=== PATIENT | female | born 1940 | race Caucasian/White ===

== ENCOUNTER 2017-03-29 03:44 | Emergency (ER) | payer MEDICARE ==
--- NOTE | 2017-03-29 03:51 | ER Document Report ---
ED Respiratory Problem - General TRAVEL OUTSIDE OF THE [place] IN LAST 30 DAYS: No <ANGELIQUE PERRY - Last Filed: 03/29/17 05:24> <DAYRON BILLINGS - Last Filed: 03/29/17 05:30> - General Stated Complaint: DIFFICULTY BREATHING Time Seen by Provider: 03/29/17 03:48 Notes: patient is a 76 year old female who presents to the Ed complaining for SOB, was sleeping when she woke up and felt she had a cough and SOB at 2am. Improved after albuterol x2 via EMS, states she feels much better now without SOB. Denies chest pain, fevers, chills, [place], abdominal pain, headhache, admits to nausea. PMH: asthma, CVA 2009, HLD, HTN, DM, dementia (ANGELIQUE PERRY) - Related Data Allergies/Adverse Reactions: Penicillins Allergy (Severe, Verified 08/20/13 13:45) Sulfa (Sulfonamide Antibiotics) Allergy (Severe, Verified 08/20/13 13:45) Past Medical History - Social History Smoking Status: Former Smoker Family History: Reviewed & Not Pertinent - Past Medical History Cardiac Medical History: Reports: Hx Hypercholesterolemia Denies: Hx Heart Attack, Hx Hypertension Pulmonary Medical History: Reports: Hx Asthma - no problems since age [age] Denies: Hx Tuberculosis Neurological Medical History: Reports: Hx Cerebrovascular Accident - 2008, right toes paresthesia. Denies: Hx Seizures Endocrine Medical History: Reports: Hx Diabetes Mellitus Type 2 GI Medical History: Denies: Hx Hepatitis, Hx Hiatal Hernia, Hx Ulcer Infectious Medical History: Denies: Hx Hepatitis Past Surgical History: Reports: Hx Hysterectomy, Hx Orthopedic Surgery - right hip fracture/ pinning. Denies: Hx Mastectomy, Hx Open Heart Surgery, Hx Pacemaker - Immunizations Hx Diphtheria, Pertussis, Tetanus Vaccination: No Hx Pneumococcal Vaccination: 07/27/09 <ANGELIQUE PERRY - Last Filed: 03/29/17 05:24> Review of Systems - Review of Systems Constitutional: No symptoms reported EENT: No symptoms reported Cardiovascular: No symptoms reported Respiratory: See HPI Gastrointestinal: See HPI Genitourinary: No symptoms reported Neurological/Psychological: No symptoms reported -: Yes All other systems reviewed and negative <ANGELIQUE PERRY - Last Filed: 03/29/17 05:24> Physical Exam <ANGELIQUE PERRY - Last Filed: 03/29/17 05:24> <DAYRON BILLINGS - Last Filed: 03/29/17 05:30> - Vital signs Vitals: Resp Pulse Ox 15 97 03/29/17 04:00 03/29/17 04:00 - Notes Notes: PHYSICAL EXAM GENERAL: Alert, interacts well. LUNGS: Diffuse rhonchi to auscultation bilaterally, no wheezes, rales. No respiratory distress. HEART: Regular rate and rhythm. No murmurs, gallops, or rubs. ABDOMEN: Soft, nondistended, nontender. No guarding, rebound, or rigidity.. Bowel sounds present in all 4 quadrants. EXTREMITIES: Moves all 4 extremities spontaneously. No edema, radial and dorsalis pedis pulses 2/4 bilaterally. No cyanosis. NEUROLOGICAL: Alert and oriented x4. Normal speech. PSYCH: Normal affect, normal mood. SKIN: Warm, dry, normal turgor. No rashes or lesions noted. (ANGELIQUE PERRY) Course - Laboratory Result Diagrams: 03/29/17 04:05 03/29/17 04:05 - Diagnostic Test Radiology reviewed: Image reviewed, Reports reviewed - EKG Interpretation by Ok EKG shows normal: Sinus rhythm Rate: Normal Rhythm: NSR When compared to previous EKG there are: No significant change <ANGELIQUE PERRY - Last Filed: 03/29/17 05:24> - Laboratory Result Diagrams: 03/29/17 04:05 03/29/17 04:05 <DAYRON BILLINGS - Last Filed: 03/29/17 05:30> - Re-evaluation Re-evalutation: 03/29/17 04:18 Patient is a 76-year-old female is hemodynamically stable, no acute distress and afebrile. Labs sent and awaiting chest x-ray. 03/29/17 05:00 CBC without any evidence of leukocytosis or anemia. Chemistry panel without any evidence of electrolyte abnormalities, abnormalities in renal function. Urinalysis with mild urinary tract infection. No evidence of pneumonia on chest x-ray. (ANGELIQUE PERRY) - Vital Signs Vital signs: Temp Pulse Resp BP Pulse Ox 24 H 161/53 H 93 03/29/17 05:01 03/29/17 05:01 03/29/17 05:01 - Laboratory Laboratory results interpreted by me: 03/29/17 03/29/17 03/29/17 04:05 04:05 04:05 Plt Count 104 L VBG pH Glucose 268 H Urine Glucose (UA) 50 H Ur Leukocyte Esterase SMALL H 03/29/17 04:05 Plt Count VBG pH 7.44 H Glucose Urine Glucose (UA) Ur Leukocyte Esterase Discharge <ANGELIQUE PERRY - Last Filed: 03/29/17 05:24> <DAYRON BILLINGS - Last Filed: 03/29/17 05:30> - Discharge Clinical Impression: Asthma exacerbation Condition: Good Disposition: HOME, SELF-CARE Instructions: Urinary Tract Infection ([facility]) Additional Instructions: SHORTNESS OF BREATH OR DYSPNEA: You were evaluated for shortness of breath, or dyspnea. Dyspnea has many causes, and some are more serious than others. Sometimes it's impossible to diagnose the cause of dyspnea with the tests that are available on an emergency basis. Based on our evaluation today, you do not need hospitalization now. We found no evidence of pneumonia, collapsed lung, blood clots in the lung, tumors , or heart failure. Causes of non-specific dyspnea can include asthma or bronchospasm, hyperventilation, emotional distress, heart disease, emphysema, fibrosis of the lung, and stiffness of the chest wall. In healthy individuals with a single episode, it's sometimes reasonable to do nothing but wait to see if the problem occurs again. Additional tests used to evaluate dyspnea can include cardiac stress testing, echocardiography, pulmonary function testing, CAT scan of the chest, bronchoscopy or pulmonary biopsy. Return if shortness of breath persists or worsens, or if you develop chest pain, fever, cough, confusion, or fainting. NORMAL EXAM AND WORKUP: At this time, your examination and workup show no significant abnormality. No significant abnormal physical findings were noted. All laboratory, EKG, and imaging (x-ray, CT scans, ultrasound) studies that were ordered show no significant abnormality. Although your examination and all studies that were ordered showed no significant abnormal finding, there are no examinations and no studies that are 100% accurate. There is always the possibility that some abnormality could exist and not be detected with physical examination or within the limits and capabilities of laboratory and other studies. You should return or follow up as you were instructed on your visit today for further evaluation if your symptoms do not resolve. FOLLOW-UP CARE: If you have been referred to a physician for follow-up care, call the physician s office for an appointment as you were instructed or within the next two days. If you experience worsening or a significant change in your symptoms, notify the physician immediately or return to the Emergency Department at any time for re-evaluation. Prescriptions: Albuterol Sulfate [Proair HFA Inhalation Aerosol 8.5 gm MDI] 2 puff IH Q4H PRN # 1 mdi PRN Reason: Nitrofurantoin/Nitrofuran Mac [Macrobid 100 mg Capsule] 1 tab PO BID #10 capsule Prednisone [Deltasone 20 mg Tablet] 3 tab PO DAILY 5 Days tablet Referrals: JIMI CARTER MD [Primary Care Provider] - Follow up in 3-5 days
[2017-03-29] MEDS ORDERED: ALBUTEROL SULFATE 0.083% NEB 2.5 MG/3 ML AMPUL NEB ONE (04:06)
[2017-03-29] MEDS ORDERED: BUDESONIDE NEB 0.5 MG/2 ML AMPUL NEB ONE (04:06)
[2017-03-29 04:30] LABS: ABSOLUTE EOSINOPHILS # (AUTO) 0.1 10^3/uL (0.0-0.6); ABSOLUTE LYMPHOCYTES (AUTO) 3.4 10^3/uL (0.5-4.7); ABSOLUTE MONOCYTES (AUTO) 0.8 10^3/uL (0.1-1.4); ABSOLUTE NEUT (AUTO) 5.3 10^3/uL (1.7-8.2); BASOPHILS % (AUTO) 0.3 % (0-2); EOSINOPHILS % (AUTO) 1.1 % (0-6); HEMATOCRIT 39.4 % (36.0-47.0); HEMOGLOBIN 13.6 g/dL (12.0-15.5); HGB HCT DIFFERENCE 1.4; LYMPHOCYTES % (AUTO) 35.1 % (13-45); MEAN CORPUSCULAR HEMOGLOBIN 31.9 pg (27.0-33.4); MEAN CORPUSCULAR HGB CONC 34.5 g/dL (32.0-36.0); MEAN CORPUSCULAR VOLUME 93 fl (80-97); MONOCYTES % (AUTO) 8.1 % (3-13); RED BLOOD COUNT 4.25 10^6/uL (3.72-5.28); SEGMENTED NEUTROPHILS % (AUTO) 55.4 % (42-78); WHITE BLOOD COUNT 9.7 10^3/uL (4.0-10.5)
--- NOTE | 2017-03-29 04:33 | RADIOLOGY REPORT (SQ) ---
EXAM DESCRIPTION: CHEST SINGLE VIEW COMPLETED DATE/TIME: 03/29/2017 4:23 am REASON FOR STUDY: shortness of breath COMPARISON: Chest x-ray 09/08/2011. EXAM PARAMETERS: NUMBER OF VIEWS: One view. TECHNIQUE: Single frontal radiographic view of the chest acquired. RADIATION DOSE: NA LIMITATIONS: None. FINDINGS: LUNGS AND PLEURA: No consolidation, pneumothorax or pleural effusion. MEDIASTINUM AND HILAR STRUCTURES: No masses. Contour normal. HEART AND VASCULAR STRUCTURES: Heart normal in size. No overt vascular congestion. BONES: No acute findings. HARDWARE: None in the chest. IMPRESSION: No acute radiographic finding in the chest. TECHNICAL DOCUMENTATION: JOB ID: [id number]
[2017-03-29 04:36] LABS: VENOUS BLOOD HCO3 23.7 mmol/L (20-32); VENOUS BLOOD PCO2 35.9 mmHg (35-63); VENOUS BLOOD PH 7.44 (7.30-7.42)
[2017-03-29 04:39] LABS: APPEARANCE,URINE CLEAR; BILIRUBIN,URINE NEGATIVE (NEGATIVE); GLUCOSE, URINE 50 mg/dL (NEGATIVE); KETONES,URINE NEGATIVE (NEGATIVE); LEUKOCYTE ESTERASE,URINE SMALL (NEGATIVE); NITRITE,URINE NEGATIVE (NEGATIVE); PROTEIN,URINE NEGATIVE (NEGATIVE); URINE SPECIFIC GRAVITY 1.003; UROBILINOGEN,URINE NEGATIVE mg/dL (<2.0)
[2017-03-29 04:48] LABS: ANION GAP 14 (5-19); BLOOD UREA NITROGEN 19 mg/dL (7-20); CALCIUM 9.7 mg/dL (8.4-10.2); CARBON DIOXIDE 23 mmol/L (22-30); CHLORIDE 101 mmol/L (98-107); CREATINE KINASE 34 U/L (30-135); CREATININE RESULT 0.68 mg/dL (0.52-1.25); GLUCOSE 268 mg/dL (75-110); POTASSIUM 3.7 mmol/L (3.6-5.0); SODIUM 137.6 mmol/L (137-145)
[2017-03-29] MEDS ORDERED: METHYLPREDNISOLONE INJ 125 MG/2 ML SDV IV ONE (04:48)
[2017-03-29 05:01] LABS: CREATINE KINASE MB 1.03 ng/mL (<4.55); TROPONIN I < 0.012 ng/mL
[2017-03-29 05:40] VITALS: BP 167/58
--- NOTE | 2017-03-29 11:33 | EKG REPORT ---
SEVERITY:- ABNORMAL ECG - SINUS RHYTHM PROBABLE LEFT ATRIAL ABNORMALITY RIGHT BUNDLE BRANCH BLOCK LEFT VENTRICULAR HYPERTROPHY ANTERIOR Q WAVES, POSSIBLY DUE TO LVH : Confirmed by: Pepe Flores 29-Mar-2017 11:32:53
== END 2017-03-29 05:40 | disposition home or self-care (01) ==
LOC: ER 03:44
DX: J45.901 Unspecified asthma with (acute) exacerbation (principal); R06.02 Shortness of breath; R05 Cough; Z79.899 Other long term (current) drug therapy; Z87.891 Personal history of nicotine dependence
CPT/HCPCS: 93005; 94640 ×2; 99285; 96374; 36415; 82553; 82550; 85025; 80048; 81001; 84484; 82803; 71010; 93010; J2930; A9270

== ENCOUNTER 2018-04-04 15:20 | Inpatient (IN) | payer MEDICARE, OTHER ==
--- NOTE | 2018-04-04 16:34 | ER Document Report ---
ED General - General Chief Complaint: S/S of Possible Stroke Stated Complaint: CANT WALK, LETHARGIC Mode of Arrival: Wheelchair Information source: Patient, Relative Notes: This is a 77-year-old female with a history of insulin requiring diabetes, hypertension and stroke in the past (with residual right leg weakness) who presents to the emergency room with 3 days of confusion, slurred speech, not able to bear weight or ambulate. At baseline, she is conversant alert and oriented 3 and ambulates with a walker. Family states that the symptoms began 3 days ago. There is been no fever, chills, nausea, vomiting, complaints of abdominal pain. TRAVEL OUTSIDE OF THE [place] IN LAST 30 DAYS: No - HPI Onset: Last week Onset/Duration: Gradual Quality of pain: No pain Severity: None Pain Level: Denies Associated symptoms: denies: Chest pain, Fever, Shortness of breath Exacerbated by: Denies Relieved by: Denies Similar symptoms previously: Yes Recently seen / treated by doctor: No - Related Data Allergies/Adverse Reactions: Penicillins Allergy (Severe, Verified 08/20/13 13:45) Sulfa (Sulfonamide Antibiotics) Allergy (Severe, Verified 08/20/13 13:45) Past Medical History - General Information source: Patient - Social History Smoking Status: Never Smoker Cigarette use (# per day): No Chew tobacco use (# tins/day): No Frequency of alcohol use: None Drug Abuse: None Lives with: Family Family History: Reviewed & Not Pertinent Patient has suicidal ideation: No Patient has homicidal ideation: No - Past Medical History Cardiac Medical History: Reports: Hx Hypercholesterolemia Denies: Hx Heart Attack, Hx Hypertension Pulmonary Medical History: Reports: Hx Asthma - no problems since age [age] Denies: Hx Tuberculosis Neurological Medical History: Reports: Hx Cerebrovascular Accident - 2009, right toes paresthesia. Denies: Hx Seizures Endocrine Medical History: Reports: Hx Diabetes Mellitus Type 2 GI Medical History: Denies: Hx Hepatitis, Hx Hiatal Hernia, Hx Ulcer Infectious Medical History: Denies: Hx Hepatitis Past Surgical History: Reports: Hx Hysterectomy, Hx Orthopedic Surgery - right hip fracture/ pinning. Denies: Hx Mastectomy, Hx Open Heart Surgery, Hx Pacemaker - Immunizations Hx Diphtheria, Pertussis, Tetanus Vaccination: No Hx Pneumococcal Vaccination: 07/27/09 Review of Systems - Review of Systems Constitutional: denies: Chills, Fever EENT: No symptoms reported Cardiovascular: No symptoms reported Respiratory: No symptoms reported Gastrointestinal: No symptoms reported Genitourinary: No symptoms reported Female Genitourinary: No symptoms reported Musculoskeletal: No symptoms reported Skin: No symptoms reported Hematologic/Lymphatic: No symptoms reported Neurological/Psychological: See HPI Physical Exam - Vital signs Vitals: Temp Pulse Resp BP Pulse Ox 98.8 F 81 18 132/48 H 97 04/04/18 15:45 04/04/18 15:45 04/04/18 15:45 04/04/18 15:45 04/04/18 15:45 Notes: Physical exam: GENERAL: 77-year-old female, alert, she is confused, no acute distress HEAD: Atraumatic, normocephalic. EYES: Pupils equal round and reactive to light, extraocular movements intact, sclera anicteric, conjunctiva are normal. ENT: TMs normal, nares patent, oropharynx clear without exudates. Moist mucous membranes. NECK: Normal range of motion, supple without obvious mass or JVD. LUNGS: Breath sounds clear to auscultation bilaterally and equal. No wheezes rales or rhonchi. HEART: Regular rate and rhythm without murmurs, rubs or gallops. ABDOMEN: Soft, normoactive bowel sounds. No tenderness to palpation. No guarding, no rebound. No masses appreciated. EXTREMITIES: Normal range of motion, no pitting or edema. No clubbing or cyanosis. NEUROLOGICAL: Cranial nerves II through XII grossly intact. Normal speech, she has good hat block bench hand strength bilaterally, she can hold up both arms for 10 seconds without drift, she can hold up the left leg for 5 seconds without drift, she has right lower extremity weakness (which family states is chronic. PSYCH: Normal mood, normal affect. SKIN: Warm, Dry, normal turgor, no rashes or lesions noted. Course - Re-evaluation Re-evalutation: 04/04/18 19:14 Note: This is a 77-year-old woman with diabetes, hypertension and stroke presenting with speech alterations, increased weakness, inability to ambulate concerning for possible new stroke. She is unable to bear weight which is a significant change from her baseline. Plan will be to admit for further evaluation. - Vital Signs Vital signs: Temp Pulse Resp BP Pulse Ox 98.8 F 81 18 132/48 H 97 04/04/18 15:45 04/04/18 15:45 04/04/18 15:45 04/04/18 15:45 04/04/18 15:45 - Laboratory Result Diagrams: 04/04/18 15:46 04/04/18 15:46 Laboratory results interpreted by me: 04/04/18 04/04/18 04/04/18 15:46 15:46 16:53 RBC 3.67 L Hct 35.6 L Plt Count 130 L BUN 22 H Ur Leukocyte Esterase TRACE H - Diagnostic Test Radiology reviewed: Image reviewed, Reports reviewed - CT of the head shows no acute process - EKG Interpretation by Me Rate: Normal Rhythm: NSR - EKG shows normal sinus rhythm with a ventricular rate of 73, intraventricular conduction delay, no acute ST-T wave changes Critical Care Note - Critical Care Note Total time excluding time spent on procedures (mins): 60 Discharge - Discharge Clinical Impression: CVA, Ambulatory dysfunction Condition: Stable Disposition: ADMITTED INPATIENT Admitting Provider: Hospitalist - [facility] Admitted: Telemetry
[2018-04-04 16:54] LABS: ALANINE AMINOTRANSFERASE 30 U/L (9-52); ALBUMIN 4.1 g/dL (3.5-5.0); ALKALINE PHOSPHATASE 74 U/L (38-126); ANION GAP 9 (5-19); ASPARTATE AMINO TRANSFERASE 30 U/L (14-36); BILIRUBIN,DIRECT 0.3 mg/dL (0.0-0.4); BLOOD UREA NITROGEN 22 mg/dL (7-20); CALCIUM 10.1 mg/dL (8.4-10.2); CARBON DIOXIDE 28 mmol/L (22-30); CHLORIDE 103 mmol/L (98-107); GLUCOSE 101 mg/dL (75-110); POTASSIUM 4.7 mmol/L (3.6-5.0); SODIUM 139.7 mmol/L (137-145); TOTAL PROTEIN 7.2 g/dL (6.3-8.2)
[2018-04-04 16:55] LABS: ABSOLUTE EOSINOPHILS # (AUTO) 0.1 10^3/uL (0.0-0.6); ABSOLUTE LYMPHOCYTES (AUTO) 2.4 10^3/uL (0.5-4.7); ABSOLUTE NEUT (AUTO) 6.3 10^3/uL (1.7-8.2); BASOPHILS % (AUTO) 0.3 % (0-2); EOSINOPHILS % (AUTO) 1.3 % (0-6); HEMATOCRIT 35.6 % (36.0-47.0); HEMOGLOBIN 12.1 g/dL (12.0-15.5); LYMPHOCYTES % (AUTO) 24.2 % (13-45); MEAN CORPUSCULAR HEMOGLOBIN 32.9 pg (27.0-33.4); MEAN CORPUSCULAR HGB CONC 33.9 g/dL (32.0-36.0); MEAN CORPUSCULAR VOLUME 97 fl (80-97); MONOCYTES % (AUTO) 10.2 % (3-13); PLATELET COUNT 130 10^3/uL (150-450); RED BLOOD COUNT 3.67 10^6/uL (3.72-5.28); RED CELL DISTRIBUTION WIDTH 13.3 % (11.5-14.0); TOTAL CELLS COUNTED % (AUTO) 100 %; WHITE BLOOD COUNT 9.8 10^3/uL (4.0-10.5)
--- NOTE | 2018-04-04 17:50 | RADIOLOGY REPORT (SQ) ---
EXAM DESCRIPTION: CT HEAD WITHOUT COMPLETED DATE/TIME: 04/04/2018 5:35 pm REASON FOR STUDY: weakness COMPARISON: 08/20/2013. TECHNIQUE: Axial images acquired through the brain without intravenous contrast. Images reviewed wi th bone, brain and subdural windows. Images stored on PACS. All CT scanners at this facility use dose modulation, iterative reconstruction, and/or weight based d osing when appropriate to reduce radiation dose to as low as reasonably achievable (ALARA). [facility]: Dose Right [facility]: CareDose [facility]: Dose Right [facility]: Teradose 4D [facility]: Smart Maker[employer] RADIATION DOSE: CT Rad equipment meets quality standard of care and radiation dose reduction techniq ues were employed. CTDIvol: 53.2 mGy. DLP: 964 mGy-cm. mGy. LIMITATIONS: None. FINDINGS: VENTRICLES: Normal size and contour. CEREBRUM: No masses. No hemorrhage. No midline shift. No evidence for acute infarction. Normal gra y/white matter differentiation. No areas of low density in the white matter. CEREBELLUM: No masses. No hemorrhage. No alteration of density. No evidence for acute infarction. EXTRAAXIAL SPACES: No fluid collections. No masses. ORBITS AND GLOBE: No intra- or extraconal masses. Normal contour of globe without masses. CALVARIUM: No fracture. PARANASAL SINUSES: No fluid or mucosal thickening. SOFT TISSUES: No mass or hematoma. OTHER: No other significant finding. IMPRESSION: NORMAL BRAIN CT WITHOUT CONTRAST. EVIDENCE OF ACUTE STROKE: NO. COMMENT: Quality ID # [id number]: Final reports with documentation of one or more dose reduction techniques (e.g., Automated exposure control, adjustment of the mA and/or kV according to patient size, use of iterative reconstruction technique) TECHNICAL DOCUMENTATION: JOB ID: [id number] [employer]- All Rights Reserved Reading location - IP/workstation name: [email or web address]
--- NOTE | 2018-04-04 18:23 | RADIOLOGY REPORT (SQ) ---
EXAM DESCRIPTION: CHEST SINGLE VIEW COMPLETED DATE/TIME: 04/04/2018 5:39 pm REASON FOR STUDY: cough COMPARISON: 03/29/2017. EXAM PARAMETERS: NUMBER OF VIEWS: One view. TECHNIQUE: Single frontal radiographic view of the chest acquired. RADIATION DOSE: NA LIMITATIONS: None. FINDINGS: LUNGS AND PLEURA: No opacities, masses or pneumothorax. No pleural effusion. MEDIASTINUM AND HILAR STRUCTURES: No masses. Contour normal. HEART AND VASCULAR STRUCTURES: Heart normal in size. Normal vasculature. BONES: No acute findings. HARDWARE: None in the chest. OTHER: No other significant finding. IMPRESSION: NO ACUTE RADIOGRAPHIC FINDING IN THE CHEST. TECHNICAL DOCUMENTATION: JOB ID: [id number] [employer]- All Rights Reserved Reading location - IP/workstation name: [email or web address]
[2018-04-04 18:48] LABS: APPEARANCE,URINE SLIGHTLY-CLOUDY; BILIRUBIN,URINE NEGATIVE (NEGATIVE); COLOR,URINE YELLOW; GLUCOSE, URINE NEGATIVE (NEGATIVE); KETONES,URINE NEGATIVE (NEGATIVE); LEUKOCYTE ESTERASE,URINE TRACE (NEGATIVE); NITRITE,URINE NEGATIVE (NEGATIVE); PROTEIN,URINE NEGATIVE (NEGATIVE); URINE SPECIFIC GRAVITY 1.012; UROBILINOGEN,URINE NEGATIVE mg/dL (<2.0)
[2018-04-04] MEDS ORDERED: PROMETHAZINE HCL 25 MG TABLET PO PRN (21:02)
[2018-04-04] MEDS ORDERED: PROMETHAZINE HCL INJ 25 MG/1 ML VIAL IV PRN (21:02)
[2018-04-04] MEDS ORDERED: ACETAMINOPHEN 325 MG TABLET PO PRN (21:02)
[2018-04-04] MEDS ORDERED: MAG HYDROX/AL HYDROX/SIMETH SUSP 30 ML UDCUP PO PRN (21:02)
--- NOTE | 2018-04-04 22:50 | EKG REPORT ---
SEVERITY:- ABNORMAL ECG - SINUS RHYTHM RBBB AND LAFB PROBABLE LEFT VENTRICULAR HYPERTROPHY : Confirmed by: Musa De Souza MD 04-Apr-2018 22:48:53
[2018-04-04] MEDS ORDERED: DEXTROSE 50%-WATER 25 GM/50 ML DISP.SYRIN IV PRN ×2 (23:12)
[2018-04-04] MEDS ORDERED: DICYCLOMINE HCL 10 MG CAPSULE PO PRN (23:12)
[2018-04-04] MEDS ORDERED: DEXTROSE 40% GEL 15 GM TUBE PO PRN ×2 (23:12)
[2018-04-04] MEDS ORDERED: GLUCAGON,HUMAN RECOMB 1 MG INJ IM PRN (23:12)
--- NOTE | 2018-04-04 23:42 | PDOC H&P ---
History of Present Illness Admission Date/PCP: 04/04/18 18:09 [place] MD Patient complains of: Unable to walk History of Present Illness: MAHI CRUZ is a 77 year old female has been brought by family members as early Thursday morning patient is lead down from a chair, apparently she hit the her bottom and since then has been just laying on the bed, patient has dementia and cannot explain me with clarity what is going on. Most of the day has been a sleeping,talking out of her head, is having hallucinations, has been confused. Has been complaining of headache as per family member but the patient denies. She is known to have dementia. Patient has chronic back pain. Patient has history of a stroke with residual left lower extremity weakness, she woke with a walker but sometimes without it at home. She denies any tingling or numbness on any extremity, apparently she complains of bilateral lower extremity weakness. No facial droop, no inability to swallow or vision problems. ED attending mention a slurred speech but when I talk to family tells me that she did not have her dentures and that the reason she was talking like that. CT of the head negative. Chest x-ray negative. 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 Renal/ Medical History: Reports: Other - Chronic UTI Malignancy Medical History: Reports: Skin Cancer - Left face GI Medical History: Reports: Gastroesophageal Reflux Disease Denies: Hepatitis, Hiatal Hernia Musculoskeltal Medical History: Reports: Other - Chronic back pain Psychiatric Medical History: Reports: Dementia Hematology: Denies: Anemia, Sickle Cell Disease Past Surgical History Past Surgical History: Reports: Hysterectomy, Orthopedic Surgery - right hip fracture/ pinning Denies: Amputation, Mastectomy, Pacemaker Social History Lives with: Family Smoking Status: Never Smoker Hx Recreational Drug Use: No Hx Prescription Drug Abuse: No Past Social History Note: Lives with her son and grandkids who are at the bedside Family History Family History: Reviewed & Not Pertinent Parental Family History Reviewed: No Children Family History Reviewed: NA Sibling(s) Family History Reviewed.: NA Medication/Allergy Home Medications: Amlodipine Besylate 5 mg PO DAILY 04/04/18 Dicyclomine HCl 10 mg PO TID PRN 04/04/18 Donepezil HCl 5 mg PO QHS 04/04/18 Gabapentin 300 mg PO QHS 04/04/18 Losartan Potassium 100 mg PO DAILY 04/04/18 Melatonin 10 mg PO QHS 04/04/18 Pitavastatin Calcium [Livalo] 2 mg PO DAILY 04/04/18 Ranitidine HCl 150 mg PO BID 04/04/18 Allergies/Adverse Reactions: Penicillins Allergy (Severe, Verified 08/20/13 13:45) Sulfa (Sulfonamide Antibiotics) Allergy (Severe, Verified 08/20/13 13:45) Review of Systems Review of Systems: As outlined in the HPI, all others negative Physical Exam Vital Signs: Temp Pulse Resp BP Pulse Ox 98.3 F 86 22 H 133/92 H 96 04/04/18 19:12 04/04/18 19:10 04/04/18 21:01 04/04/18 21:00 04/04/18 20:30 Additional comments: General appearance: Well-developed, well-nourished, elderly, alert and cooperative, and appears to be in no acute distress Head: Normocephalic Eyes: PEERL, EOMI, vision is grossly intact. Ears: External auditory canal and tympanic membranes clear, hearing grossly intact. Nose: No nasal discharge. Throat: Oral cavity and pharynx normal. No inflammation, swelling, exudate or lesions. Dentures in place Neck: Neck supple, nontender without lymphadenopathy, masses or thyromegaly. Tenderness upon movement of the cervical spine Cardiac: Normal S1 and S2. No S3, S4 or murmurs. Rhythm is regular. There is no peripheral edema, cyanosis or pallor. Extremities are warm and well perfused. Capillary refill is less than 2 seconds. No carotid bruits. Lungs: Clear to auscultation and percussion without rales, rhonchi, wheezing or diminished breath sounds. Not using accessory muscles. Abdomen: Positive bowel sounds. Soft. Nondistended, nontender. No guarding or rebound. No masses. No hepatosplenomegaly Extremities: No significant deformity or joint abnormality. No edema. Peripheral pulses intact. No varicosities. Neurological: Cranial nerves II through XII grossly intact. Inability to flex hips similarly or actively and she complains of excruciating back pain. Even when I rolled the patient to the left patient complains of back pains from the cervical spine down to the buttocks area. Do not appreciate focalization. Skin: Skin normal color, texture and turgor with no eruptions, warm and dry. Left facial chronic ulcer. Psychiatric: The mental examination revealed the patient was oriented to person , place, partially in time. The patient was able to demonstrate good judgment, hallucinations during my evaluation or abnormal behaviors. Results Laboratory Results: 04/04/18 04/04/18 04/04/18 15:46 15:46 15:46 WBC 9.8 RBC 3.67 L Hgb 12.1 Hct 35.6 L MCV 97 MCH 32.9 MCHC 33.9 RDW 13.3 Plt Count 130 L Seg Neutrophils % 64.0 Lymphocytes % 24.2 Monocytes % 10.2 Eosinophils % 1.3 Basophils % 0.3 Absolute Neutrophils 6.3 Absolute Lymphocytes 2.4 Absolute Monocytes 1.0 Absolute Eosinophils 0.1 Absolute Basophils 0.0 Sodium 139.7 Potassium 4.7 Chloride 103 Carbon Dioxide 28 Anion Gap 9 BUN 22 H Creatinine 0.84 Est GFR ( Amer) > 60 Est GFR (Non-Af Amer) > 60 Glucose 101 POC Glucose Calcium 10.1 Total Bilirubin 1.0 Direct Bilirubin 0.3 AST 30 ALT 30 Alkaline Phosphatase 74 Creatine Kinase 67 Total Protein 7.2 Albumin 4.1 Urine Color Urine Appearance Urine pH Ur Specific Clute Urine Protein Urine Glucose (UA) Urine Ketones Urine Blood Urine Nitrite Urine Bilirubin Urine Urobilinogen Ur Leukocyte Esterase Urine WBC (Auto) Urine RBC (Auto) Squamous Epi Cells Auto Urine Mucus (Auto) Urine Ascorbic Acid Stool Occult Blood 04/04/18 04/04/18 04/04/18 16:26 16:53 22:25 WBC RBC Hgb Hct MCV MCH MCHC RDW Plt Count Seg Neutrophils % Lymphocytes % Monocytes % Eosinophils % Basophils % Absolute Neutrophils Absolute Lymphocytes Absolute Monocytes Absolute Eosinophils Absolute Basophils Sodium Potassium Chloride Carbon Dioxide Anion Gap BUN Creatinine Est GFR ( Amer) Est GFR (Non-Af Amer) Glucose POC Glucose 180 H Calcium Total Bilirubin Direct Bilirubin AST ALT Alkaline Phosphatase Creatine Kinase Total Protein Albumin Urine Color YELLOW Urine Appearance SLIGHTLY-CLOUDY Urine pH 5.0 Ur Specific Clute 1.012 Urine Protein NEGATIVE Urine Glucose (UA) NEGATIVE Urine Ketones NEGATIVE Urine Blood NEGATIVE Urine Nitrite NEGATIVE Urine Bilirubin NEGATIVE Urine Urobilinogen NEGATIVE Ur Leukocyte Esterase TRACE H Urine WBC (Auto) 6 Urine RBC (Auto) 0 Squamous Epi Cells Auto <1 Urine Mucus (Auto) RARE Urine Ascorbic Acid NEGATIVE Stool Occult Blood NEGATIVE Impressions: Chest X-Ray 04/04/18 16:26 IMPRESSION: NO ACUTE RADIOGRAPHIC FINDING IN THE CHEST. Head CT 04/04/18 16:27 IMPRESSION: NORMAL BRAIN CT WITHOUT CONTRAST. EVIDENCE OF ACUTE STROKE: NO. Assessment & Plan - Diagnosis (1) Inability to walk Is this a current diagnosis for this admission?: Yes Plan: Patient is light from a chair last Thursday, was unwitnessed, apparently she hated her lower back and fell on her buttocks. She has no focalizing and during my physical exam was she is complaining if of severe pain when I move passively her lower extremities, right more than left. He can move better the left lower extremity actively. I feel that her symptoms has to do more with her chronic back pain rather than acutely stroke, however I will place an order for an MRI of the brain. She is known to have chronic left lower extremity weakness and she walks with a walker. Physical therapy evaluation. Patient might need a CT of the spine if symptoms is not improved. I am going to avoid to give her any opioids. Continues telemetry monitoring. (2) Diabetes mellitus type 2 in obese Is this a current diagnosis for this admission?: Yes Plan: accuckecks qachs, insulin lispro sliding scale and hypoglycemia protocol. Do not see she is on any diabetic medication at home. (3) Hypertension Is this a current diagnosis for this admission?: Yes Plan: Continue amlodipine and losartan (4) Peripheral neuropathy Is this a current diagnosis for this admission?: Yes Plan: Continue gabapentin (5) Chronic back pain Is this a current diagnosis for this admission?: Yes Plan: Continue gabapentin, Tylenol, place order for lidocaine patch. (6) Dementia Is this a current diagnosis for this admission?: Yes Plan: Probably progressing, can explain her confusion and altered mental status at home including hallucinations, she will probably follow with neurology as an outpatient. Continue donepezil. During my examination seems to be at her baseline. - Time Time Spent: 30 to 50 Minutes
[2018-04-04] MEDS: NORMAL SALINE 1000 ML 1,000 ML IV PRN (23:48)
[2018-04-04] MEDS: INSULIN LISPRO 100 UNIT/ML 3 ML VIAL SUBCUT PRN (23:48)
[2018-04-05] MEDS ORDERED: LIDOCAINE 4% TRANSPARENT DRESSING 5 GM KIT TP ONE
[2018-04-05] MEDS ORDERED: LIDOCAINE 4% TRANSPARENT DRESSING 5 GM KIT ONE (01:44)
[2018-04-05 07:20] LABS: ANION GAP 10 (5-19); BLOOD UREA NITROGEN 20 mg/dL (7-20); CALCIUM 9.4 mg/dL (8.4-10.2); CARBON DIOXIDE 25 mmol/L (22-30); CHLORIDE 104 mmol/L (98-107); GLUCOSE 134 mg/dL (75-110); POTASSIUM 4.1 mmol/L (3.6-5.0); SODIUM 139.1 mmol/L (137-145)
[2018-04-05] MEDS ORDERED: PROMETHAZINE HCL INJ 25 MG/1 ML VIAL IV PRN (08:00)
[2018-04-05] MEDS ORDERED: ENOXAPARIN SODIUM INJ 40 MG/0.4 ML DISP.SYRIN SUBCUT SCH (10:00)
[2018-04-05] MEDS ORDERED: RANITIDINE HCL SYRUP 150 MG/10 ML UDCUP PO SCH (10:00)
[2018-04-05] MEDS: LOSARTAN POTASSIUM 50 MG TABLET PO SCH (10:24)
[2018-04-05] MEDS: FAMOTIDINE 20 MG TABLET PO SCH ×2 (10:25→17:29)
[2018-04-05] MEDS: AMLODIPINE BESYLATE 5 MG TABLET PO SCH (10:25)
--- NOTE | 2018-04-05 13:18 | RADIOLOGY REPORT (SQ) ---
EXAM DESCRIPTION: MRI HEAD WITHOUT COMPLETED DATE/TIME: 04/05/2018 12:44 pm REASON FOR STUDY: CVA COMPARISON: MRI brain 06/08/2009 CT brain 04/04/2018 TECHNIQUE: Multiplanar imaging includes non-contrasted T1, T2, FLAIR, and diffusion with ADC map seq uences. Images stored on PACS. LIMITATIONS: Motion artifact throughout the study FINDINGS: Study degraded by patient motion artifact. Diffusion-weighted images are positive for multiple punctate acute infarcts in the bifrontal and bipa rietal layne-white junction, left external capsule/lateral basal ganglia, bilateral occipital layne-whi te junction, and bilateral cerebellar hemispheres. Findings are worrisome for acute nonhemorrhagic e mbolic infarcts. No gross acute intracranial hemorrhage or mass effect/midline shift. Globes post cataract surgery IMPRESSION: Multiple punctate acute foci of ischemia scattered throughout the bilateral cerebral and cerebellar hemispheres worrisome for embolic stroke. These are acute, nonhemorrhagic. EVIDENCE OF ACUTE STROKE: Yes COMMENT: Pertinent findings on the imaging study reported as a CRITICAL RESULT to SONI harrison t13:11 on 04/05/2018. Category of Critical Result: ACUTE NONHEMORRHAGIC EMBOLIC INFARCTS TECHNICAL DOCUMENTATION: JOB ID: [id number] [employer]- All Rights Reserved Reading location - IP/workstation name: [email or web address]
[2018-04-05] MEDS: NORMAL SALINE 1000 ML 1,000 ML IV PRN (14:41)
[2018-04-05] MEDS: INSULIN LISPRO 100 UNIT/ML 3 ML VIAL SUBCUT PRN ×3 (14:42→23:11)
[2018-04-05] MEDS ORDERED: HEPARIN SOD (PORCINE) 1,000 UNIT/ML 10 ML VIAL IV ONE (15:00)
[2018-04-05 15:18] LABS: APPEARANCE,URINE CLEAR; BILIRUBIN,URINE NEGATIVE (NEGATIVE); COLOR,URINE STRAW; GLUCOSE, URINE 50 mg/dL (NEGATIVE); KETONES,URINE NEGATIVE (NEGATIVE); LEUKOCYTE ESTERASE,URINE TRACE (NEGATIVE); NITRITE,URINE NEGATIVE (NEGATIVE); PROTEIN,URINE NEGATIVE (NEGATIVE); URINE SPECIFIC GRAVITY 1.008; UROBILINOGEN,URINE NEGATIVE mg/dL (<2.0)
[2018-04-05 15:26] LABS: INTERNATIONAL RATION (INR) 1.02; PARTIAL THROMBOPLASTIN TIME 36.2 SEC (23.5-35.8); PROTHROMBIN TIME 13.9 SEC (11.4-15.4)
[2018-04-05] MEDS: HEPARIN SODIUM,PORCINE/D5W 25,000 UNIT/250 ML RTUINJ IV PRN (16:22)
--- NOTE | 2018-04-05 21:19 | PDOC PROGRESS REPORT ---
<SONI JUNIOR Willy - Last Filed: 04/05/18 20:50> Subjective Progress Note for:: 04/05/18 Subjective:: 77 y.o. F admitted to [facility] for bilateral lower extremity weakness starting three days ago. PMH includes HLD, HTN, CVA, asthma, diabetes, chronic UTI, and dementia. The patient was seen this afternoon on rounds following her MRI. Upon assessment the patient is resting comfortably in bed on room air. She is A&Ox3 but confused at times. She has trouble recalling the events leading up to her hospitalization. PERRLA. Equal strength in all extremities. No motor or sensory deficits noted. Mild difficulty with hand/eye coordination. LCTA. S1S2. Trace peripheral edema. Per PT/OT evaluation, they state the patient requires 2 person assist to get OOB. Radiologist reported MRI showed multiple areas of acute ischemia scattered throughout the cerebral and cerebral hemispheres - concerning for embolic stroke. Patient was started on Heparin gtt. [facility] was contacted regarding the need for a KATHE. Dr. Harper (assessment clinician) agreed to evaluate the patient tomorrow at 0900 and, if needed, move forward with the procedure at 1000. Nursing staff aware. Reason For Visit: GENERALIZED WEAKNESS Physical Exam Vital Signs: Temp Pulse Resp BP Pulse Ox 98.8 F 94 16 134/52 H 97 04/05/18 11:16 04/05/18 11:16 04/05/18 11:16 04/05/18 11:16 04/05/18 11:16 Intake & Output 04/04/18 04/05/18 04/06/18 06:59 06:59 06:59 Intake Total 222 Output Total 600 Balance -378 Weight 80.6 kg General appearance: PRESENT: morbidly obese Head exam: PRESENT: atraumatic Eye exam: PRESENT: conjunctiva pink, PERRLA. ABSENT: nystagmus Mouth exam: PRESENT: moist, tongue midline Teeth exam: PRESENT: poor dentation Neck exam: PRESENT: full ROM Respiratory exam: PRESENT: clear to auscultation vannessa, symmetrical, unlabored Cardiovascular exam: PRESENT: +S1, +S2 Pulses: PRESENT: normal radial pulses, normal dorsalis pedis pul GI/Abdominal exam: PRESENT: normal bowel sounds, soft. ABSENT: distended, tenderness Rectal exam: PRESENT: deferred Extremities exam: PRESENT: full ROM, +1 edema Musculoskeletal exam: PRESENT: full ROM. ABSENT: ambulatory - with 2 person assist Neurological exam: PRESENT: alert, awake, oriented to person, oriented to place , oriented to time, oriented to situation Psychiatric exam: PRESENT: appropriate affect Skin exam: PRESENT: dry, intact, normal color, warm Results Laboratory Results: 04/05/18 05:13 04/05/18 04/05/18 05:13 05:13 Sodium 139.1 Potassium 4.1 Chloride 104 Carbon Dioxide 25 Anion Gap 10 BUN 20 Creatinine 0.85 Est GFR ( Amer) > 60 Est GFR (Non-Af Amer) > 60 Glucose 134 H Calcium 9.4 Magnesium 1.7 Impressions: Chest X-Ray 04/04/18 16:26 IMPRESSION: NO ACUTE RADIOGRAPHIC FINDING IN THE CHEST. Head CT 04/04/18 16:27 IMPRESSION: NORMAL BRAIN CT WITHOUT CONTRAST. EVIDENCE OF ACUTE STROKE: NO. Head MRI 04/05/18 00:00 IMPRESSION: Multiple punctate acute foci of ischemia scattered throughout the bilateral cerebral and cerebellar hemispheres worrisome for embolic stroke. These are acute, nonhemorrhagic. EVIDENCE OF ACUTE STROKE: Yes Assessment & Plan - Diagnosis (1) Acute CVA (cerebrovascular accident) Is this a current diagnosis for this admission?: Yes Plan: As evidence by multiple acute foci infarct on MRI in cerebellar and cerebral hemispheres Admit to IM MENDS q4hr Initiate heparin GTT Patient will require KATHE, arrangements made with [facility] to have procedure done tomorrow Aspirin and statin therapy PT/OT (2) Dementia Is this a current diagnosis for this admission?: Yes Plan: Family endorses history of dementia Patient is able to answer orientation questions but clearly has some confusion/ dementia upon further evaluation Continue home dose Aricept Encourage family visitation Day/night cues Room close to nursing station for safety (3) Diabetes mellitus type 2 in obese Is this a current diagnosis for this admission?: Yes Plan: History of diabetes ACHS accucheks Humalog sliding scale coverage (4) Hypertension Is this a current diagnosis for this admission?: Yes Plan: History of HTN Continue home dose losartaan and amlodipine - Time Time Spent with patient: 15-24 minutes Medications reviewed and adjusted accordingly: Yes Anticipated discharge: Acute Rehab - Inpatient Certification Based on my medical assessment, after consideration of the patient's comorbidities, presenting symptoms, or acuity I expect that the services needed warrant INPATIENT care.: Yes I certify that my determination is in accordance with my understanding of Medicare's requirements for reasonable and necessary INPATIENT services [42 CFR 412.3e].: Yes Medical Necessity: Risk of Complication if Not Cared For in Hospital - Plan Summary Plan Summary: HEPARIN GTT. KATHE AT [facility] TOMORROW. BLOOD PRESSURE MONITORING. PT/OT. LIKELY D/C TO ACUTE REHAB. <SWAYZE,ALICIA M - Last Filed: 04/20/18 17:20> Subjective Reason For Visit: CVA Physical Exam Vital Signs: Temp Pulse Resp BP Pulse Ox 98.1 F 102 H 16 110/45 L 98 04/06/18 23:19 04/06/18 23:19 04/06/18 23:19 04/06/18 23:19 04/06/18 23:19 Results Laboratory Results: 04/06/18 05:06 04/06/18 05:06 Impressions: Chest X-Ray 04/04/18 16:26 IMPRESSION: NO ACUTE RADIOGRAPHIC FINDING IN THE CHEST. Head CT 04/04/18 16:27 IMPRESSION: NORMAL BRAIN CT WITHOUT CONTRAST. EVIDENCE OF ACUTE STROKE: NO. Head MRI 04/05/18 00:00 IMPRESSION: Multiple punctate acute foci of ischemia scattered throughout the bilateral cerebral and cerebellar hemispheres worrisome for embolic stroke. These are acute, nonhemorrhagic. EVIDENCE OF ACUTE STROKE: Yes Provider Note Provider Note: I have discussed the patient in detail with ERIN Junior. I am in agreement with her evaluation and plan.
[2018-04-05] MEDS: ATORVASTATIN CALCIUM 10 MG TABLET PO SCH (23:12)
[2018-04-05] MEDS: GABAPENTIN 300 MG CAPSULE PO SCH (23:12)
[2018-04-05] MEDS: DONEPEZIL HCL 5 MG TABLET PO SCH (23:13)
[2018-04-06] MEDS: MELATONIN 5 MG TABLET PO SCH ×2 (04:51→23:02)
[2018-04-06] MEDS: NORMAL SALINE 1000 ML 1,000 ML IV PRN (06:08)
[2018-04-06 06:15] LABS: HEMATOCRIT 32.1 % (36.0-47.0); HEMOGLOBIN 11.1 g/dL (12.0-15.5); MEAN CORPUSCULAR HEMOGLOBIN 33.3 pg (27.0-33.4); MEAN CORPUSCULAR HGB CONC 34.7 g/dL (32.0-36.0); MEAN CORPUSCULAR VOLUME 96 fl (80-97); PLATELET COUNT 114 10^3/uL (150-450); RED BLOOD COUNT 3.34 10^6/uL (3.72-5.28); RED CELL DISTRIBUTION WIDTH 13.1 % (11.5-14.0); WHITE BLOOD COUNT 9.7 10^3/uL (4.0-10.5)
[2018-04-06 06:39] LABS: ANION GAP 8 (5-19); BLOOD UREA NITROGEN 14 mg/dL (7-20); CARBON DIOXIDE 23 mmol/L (22-30); CHLORIDE 108 mmol/L (98-107); CHOLESTEROL 134.27 mg/dL (0-200); GLUCOSE 134 mg/dL (75-110); PHOSPHORUS 3.4 mg/dL (2.5-4.5); POTASSIUM 4.1 mmol/L (3.6-5.0); SODIUM 138.7 mmol/L (137-145); TRIGLYCERIDES 97 mg/dL (<150)
[2018-04-06 06:50] LABS: DIRECT LDL 65 mg/dL (<100)
[2018-04-06] MEDS: LOSARTAN POTASSIUM 50 MG TABLET PO SCH (09:40)
[2018-04-06] MEDS: AMLODIPINE BESYLATE 5 MG TABLET PO SCH (09:40)
[2018-04-06] MEDS: FAMOTIDINE 20 MG TABLET PO SCH ×2 (09:40→17:21)
[2018-04-06] MEDS ORDERED: ASPIRIN 81 MG TABLET, CHEWABLE PO SCH (10:00)
[2018-04-06] MEDS: INSULIN LISPRO 100 UNIT/ML 3 ML VIAL SUBCUT PRN ×2 (13:06→21:34)
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
[2018-04-06] MEDS: HEPARIN SODIUM,PORCINE/D5W 25,000 UNIT/250 ML RTUINJ IV PRN (15:30)
[2018-04-06] MEDS: GABAPENTIN 300 MG CAPSULE PO SCH (21:29)
[2018-04-06] MEDS: ATORVASTATIN CALCIUM 10 MG TABLET PO SCH (21:29)
[2018-04-06] MEDS: DONEPEZIL HCL 5 MG TABLET PO SCH (21:29)
[2018-04-06 23:35] VITALS: BP 110/45
[2018-04-07] MEDS: NORMAL SALINE 1000 ML 1,000 ML IV PRN (00:13)
== END 2018-04-07 02:48 | disposition short-term general hospital (02) | DRG 66 ==
LOC: ER 15:20 → EH 18:09 → INTOOBSV 18:09 → 3W 23:20 → OBSVTOIN 04-05 16:37
PROVIDERS: ADMIT Internal Medicine; ATTEND Internal Medicine
DX: I63.9 Cerebral infarction, unspecified (principal); E78.5 Hyperlipidemia, unspecified; I69.341 Monoplegia of lower limb following cerebral infarction affecting right dominant side; I10 Essential (primary) hypertension; E11.42 Type 2 diabetes mellitus with diabetic polyneuropathy; K21.9 Gastro-esophageal reflux disease without esophagitis; G89.29 Other chronic pain; M54.9 Dorsalgia, unspecified; E66.01 Morbid (severe) obesity due to excess calories; F03.90 Unspecified dementia, unspecified severity, without behavioral disturbance, psychotic disturbance, mood disturbance, and anxiety; J45.909 Unspecified asthma, uncomplicated; Z87.440 Personal history of urinary (tract) infections; Z88.2 Allergy status to sulfonamides; Z79.4 Long term (current) use of insulin; Z90.710 Acquired absence of both cervix and uterus; Z85.828 Personal history of other malignant neoplasm of skin; Z75.1 Person awaiting admission to adequate facility elsewhere
CPT/HCPCS: 36415; 51702; 70450; 70551; 71045; 80048; 80053; 80061; 81001; 82272; 82550; 82962; 83735; 84100; 85025; 85027; 85610; 85730; 87086; 93005; 93010; 99291; G0378; G8978-GP; G8979-GP; G8987-GO; G8988-GO; G8989-GO; J1644; J1650; J1815; J3490; J7030

== ENCOUNTER → 2018-06-04 | Outpatient (CLI) | payer MEDICARE, OTHER | LOC: OD 09:33 | PROVIDERS: ATTEND Family Medicine Geriatric Medicine | DX: E11.9 Type 2 diabetes mellitus without complications (principal); Z53.8 Procedure and treatment not carried out for other reasons; I10 Essential (primary) hypertension; E78.5 Hyperlipidemia, unspecified; Z79.899 Other long term (current) drug therapy; E53.8 Deficiency of other specified B group vitamins ==

== ENCOUNTER → 2018-06-29 | Outpatient (CLI) | payer MEDICARE ==
[2018-06-29 12:03] LABS: ABSOLUTE EOSINOPHILS # (AUTO) 0.2 10^3/uL (0.0-0.6); ABSOLUTE LYMPHOCYTES (AUTO) 2.8 10^3/uL (0.5-4.7); ABSOLUTE MONOCYTES (AUTO) 0.7 10^3/uL (0.1-1.4); ABSOLUTE NEUT (AUTO) 5.9 10^3/uL (1.7-8.2); BASOPHILS % (AUTO) 0.4 % (0-2); EOSINOPHILS % (AUTO) 1.8 % (0-6); HEMATOCRIT 35.3 % (36.0-47.0); HEMOGLOBIN 12.4 g/dL (12.0-15.5); LYMPHOCYTES % (AUTO) 29.3 % (13-45); MEAN CORPUSCULAR HEMOGLOBIN 33.3 pg (27.0-33.4); MEAN CORPUSCULAR HGB CONC 35.1 g/dL (32.0-36.0); MEAN CORPUSCULAR VOLUME 95 fl (80-97); MONOCYTES % (AUTO) 7.6 % (3-13); PLATELET COUNT 148 10^3/uL (150-450); RED BLOOD COUNT 3.72 10^6/uL (3.72-5.28); RED CELL DISTRIBUTION WIDTH 14.1 % (11.5-14.0); SEGMENTED NEUTROPHILS % (AUTO) 60.9 % (42-78); TOTAL CELLS COUNTED % (AUTO) 100 %; WHITE BLOOD COUNT 9.7 10^3/uL (4.0-10.5)
[2018-06-29 12:20] LABS: ALANINE AMINOTRANSFERASE 35 U/L (9-52); ALBUMIN 4.1 g/dL (3.5-5.0); ALKALINE PHOSPHATASE 94 U/L (38-126); ANION GAP 11 (5-19); ASPARTATE AMINO TRANSFERASE 25 U/L (14-36); BILIRUBIN,DIRECT 0.1 mg/dL (0.0-0.4); BILIRUBIN,TOTAL 0.6 mg/dL (0.2-1.3); BLOOD UREA NITROGEN 19 mg/dL (7-20); CALCIUM 9.7 mg/dL (8.4-10.2); CARBON DIOXIDE 27 mmol/L (22-30); CHLORIDE 103 mmol/L (98-107); CHOLESTEROL 118.69 mg/dL (0-200); GLUCOSE 94 mg/dL (75-110); POTASSIUM 4.5 mmol/L (3.6-5.0); SODIUM 140.7 mmol/L (137-145); TOTAL PROTEIN 7.1 g/dL (6.3-8.2); TRIGLYCERIDES 134 mg/dL (<150)
[2018-06-29 12:31] LABS: DIRECT LDL 64 mg/dL (<100)
[2018-06-30 12:38] LABS: CREATININE URINE 101.1 mg/dL (Not Estab.); MICROALBUMIN URINE 18.8 ug/mL (Not Estab.)
== END ==
LOC: LAB 11:20
PROVIDERS: ATTEND Family Medicine Geriatric Medicine
DX: E11.9 Type 2 diabetes mellitus without complications (principal); I10 Essential (primary) hypertension; E66.9 Obesity, unspecified; E55.9 Vitamin D deficiency, unspecified; E78.5 Hyperlipidemia, unspecified; Z79.899 Other long term (current) drug therapy
CPT/HCPCS: 36415; 80053; 80061; 82043; 82570; 82607; 83036; 84443; 85025

== ENCOUNTER → 2018-09-06 | Outpatient (CLI) | payer MEDICARE ==
[2018-09-06 13:18] LABS: ABSOLUTE EOSINOPHILS # (AUTO) 0.2 10^3/uL (0.0-0.6); ABSOLUTE LYMPHOCYTES (AUTO) 2.5 10^3/uL (0.5-4.7); ABSOLUTE MONOCYTES (AUTO) 0.7 10^3/uL (0.1-1.4); ABSOLUTE NEUT (AUTO) 5.4 10^3/uL (1.7-8.2); BASOPHILS % (AUTO) 0.4 % (0-2); EOSINOPHILS % (AUTO) 2.7 % (0-6); HEMATOCRIT 35.1 % (36.0-47.0); HEMOGLOBIN 12.2 g/dL (12.0-15.5); LYMPHOCYTES % (AUTO) 28.1 % (13-45); MEAN CORPUSCULAR HEMOGLOBIN 33.3 pg (27.0-33.4); MEAN CORPUSCULAR HGB CONC 34.7 g/dL (32.0-36.0); MEAN CORPUSCULAR VOLUME 96 fl (80-97); MONOCYTES % (AUTO) 7.5 % (3-13); PLATELET COUNT 156 10^3/uL (150-450); RED BLOOD COUNT 3.65 10^6/uL (3.72-5.28); RED CELL DISTRIBUTION WIDTH 14.1 % (11.5-14.0); SEGMENTED NEUTROPHILS % (AUTO) 61.3 % (42-78); TOTAL CELLS COUNTED % (AUTO) 100 %; WHITE BLOOD COUNT 8.7 10^3/uL (4.0-10.5)
[2018-09-06 13:36] LABS: ALANINE AMINOTRANSFERASE 36 U/L (9-52); ALBUMIN 4.4 g/dL (3.5-5.0); ALKALINE PHOSPHATASE 106 U/L (38-126); ANION GAP 11 (5-19); ASPARTATE AMINO TRANSFERASE 23 U/L (14-36); BILIRUBIN,DIRECT 0.1 mg/dL (0.0-0.4); BILIRUBIN,TOTAL 0.8 mg/dL (0.2-1.3); BLOOD UREA NITROGEN 17 mg/dL (7-20); CALCIUM 9.7 mg/dL (8.4-10.2); CARBON DIOXIDE 29 mmol/L (22-30); CHLORIDE 101 mmol/L (98-107); GLUCOSE 145 mg/dL (75-110); POTASSIUM 4.4 mmol/L (3.6-5.0); SODIUM 140.6 mmol/L (137-145); TOTAL PROTEIN 7.1 g/dL (6.3-8.2); TRIGLYCERIDES 152 mg/dL (<150)
[2018-09-06 13:48] LABS: DIRECT LDL 69 mg/dL (<100)
[2018-09-06 14:26] LABS: VLDL CHOLESTEROL 30.4 mg/dL (10-31)
[2018-09-07 12:38] LABS: CREATININE URINE 31.6 mg/dL (Not Estab.)
== END ==
LOC: LAB 12:40
PROVIDERS: ATTEND Family Medicine Geriatric Medicine
DX: E11.42 Type 2 diabetes mellitus with diabetic polyneuropathy (principal); E78.5 Hyperlipidemia, unspecified; I10 Essential (primary) hypertension; E53.8 Deficiency of other specified B group vitamins; K21.9 Gastro-esophageal reflux disease without esophagitis; Z79.899 Other long term (current) drug therapy
CPT/HCPCS: 36415; 80053; 80061; 82043; 82570; 82607; 83036; 84443; 85025

== ENCOUNTER 2019-04-11 12:54 | Emergency (ER) | payer MEDICARE, OTHER ==
--- NOTE | 2019-04-11 13:32 | ER Document Report ---
ED Medical Screen (RME) - General Chief Complaint: Urinary Problem Stated Complaint: URINARY ISSUES Time Seen by Provider: 04/11/19 13:24 Primary Care Provider: GOOD RICHMOND MD [Primary Care Provider] - Follow up as needed Mode of Arrival: Wheelchair Information source: Relative Notes: Patient is a 78-year-old female presented to the emergency department chief co mplaint of possible rash to her groin area as well as pain to that area and fever earlier today. Son reports the patient has severe dementia. He states that his told him she has a rash to her groin and that she has been having obvious pain. She was recently treated for urinary tract infection. Exam: Patient sitting up in wheelchair, not answering any questions, apparently this is her baseline. She does not appear to be toxic, her vital signs were within normal limits. Vaginal exam deferred until patient is in her room. I have greeted and performed a rapid initial assessment of this patient. A comprehensive ED assessment and evaluation of the patient, analysis of test results and completion of the medical decision making process will be conducted by additional ED providers. I have specifically instructed the patient or family members with the patient to immediately return to any nursing staff should anything change in the patient's condition or with their chief complaint. This medical record was dictated with voice recognizing software. There may be grammatical, syntax errors that are unintended. TRAVEL OUTSIDE OF THE [place] IN LAST 30 DAYS: No - Related Data Allergies/Adverse Reactions: Penicillins Allergy (Severe, Verified 08/20/13 13:45) Sulfa (Sulfonamide Antibiotics) Allergy (Severe, Verified 08/20/13 13:45) Past Medical History - Social History Chew tobacco use (# tins/day): No Frequency of alcohol use: None Drug Abuse: None - Past Medical History Cardiac Medical History: Reports: Hx Hypercholesterolemia, Hx Hypertension Denies: Hx Heart Attack Pulmonary Medical History: Reports: Hx Asthma - no problems since age [age] Denies: Hx Tuberculosis Neurological Medical History: Reports: Hx Cerebrovascular Accident - 2009, right toes paresthesia. Denies: Hx Seizures Endocrine Medical History: Reports: Hx Diabetes Mellitus Type 2 - With peripheral neuropathy Renal/ Medical History: Denies: Hx Peritoneal Dialysis Malignancy Medical History: Reports: Hx Skin Cancer - Left face GI Medical History: Reports: Hx Gastroesophageal Reflux Disease. Denies: Hx Hepatitis, Hx Hiatal Hernia, Hx Ulcer Psychiatric Medical History: Reports: Hx Dementia Infectious Medical History: Denies: Hx Hepatitis Past Surgical History: Reports: Hx Hysterectomy, Hx Orthopedic Surgery - right hip fracture/ pinning. Denies: Hx Mastectomy, Hx Open Heart Surgery, Hx Pacemaker - Immunizations Hx Diphtheria, Pertussis, Tetanus Vaccination: No Physical Exam - Vital signs Vitals: Temp Pulse Resp BP 99.5 F 87 18 136/59 H 04/11/19 13:01 04/11/19 13:01 04/11/19 13:01 04/11/19 13:01 Course - Vital Signs Vital signs: Temp Pulse Resp BP Pulse Ox 99.5 F 87 18 136/59 H 04/11/19 13:01 04/11/19 13:01 04/11/19 13:01 04/11/19 13:01 Doctor's Discharge - Discharge Referrals: GOOD RICHMOND MD [Primary Care Provider] - Follow up as needed
[2019-04-11 14:15] LABS: ABSOLUTE BASOPHILS # (AUTO) 0.1 10^3/uL (0.0-0.2); ABSOLUTE EOSINOPHILS # (AUTO) 0.3 10^3/uL (0.0-0.6); ABSOLUTE LYMPHOCYTES (AUTO) 2.7 10^3/uL (0.5-4.7); ABSOLUTE MONOCYTES (AUTO) 0.7 10^3/uL (0.1-1.4); ABSOLUTE NEUT (AUTO) 4.6 10^3/uL (1.7-8.2); BASOPHILS % (AUTO) 0.7 % (0-2); EOSINOPHILS % (AUTO) 3.9 % (0-6); HEMATOCRIT 35.2 % (36.0-47.0); LYMPHOCYTES % (AUTO) 32.5 % (13-45); MEAN CORPUSCULAR HEMOGLOBIN 32.6 pg (27.0-33.4); MEAN CORPUSCULAR HGB CONC 34.1 g/dL (32.0-36.0); MEAN CORPUSCULAR VOLUME 96 fl (80-97); MONOCYTES % (AUTO) 8.6 % (3-13); PLATELET COUNT 154 10^3/uL (150-450); RED BLOOD COUNT 3.68 10^6/uL (3.72-5.28); RED CELL DISTRIBUTION WIDTH 13.6 % (11.5-14.0); SEGMENTED NEUTROPHILS % (AUTO) 54.3 % (42-78); TOTAL CELLS COUNTED % (AUTO) 100 %; WHITE BLOOD COUNT 8.4 10^3/uL (4.0-10.5)
[2019-04-11 14:41] LABS: ALBUMIN 4.1 g/dL (3.5-5.0); ALKALINE PHOSPHATASE 82 U/L (38-126); ANION GAP 11 (5-19); ASPARTATE AMINO TRANSFERASE 21 U/L (14-36); BILIRUBIN,DIRECT 0.1 mg/dL (0.0-0.4); BILIRUBIN,TOTAL 0.5 mg/dL (0.2-1.3); BLOOD UREA NITROGEN 17 mg/dL (7-20); CALCIUM 9.4 mg/dL (8.4-10.2); CARBON DIOXIDE 25 mmol/L (22-30); CHLORIDE 101 mmol/L (98-107); GLUCOSE 158 mg/dL (75-110); POTASSIUM 4.4 mmol/L (3.6-5.0); TOTAL PROTEIN 6.8 g/dL (6.3-8.2)
[2019-04-11 15:19] LABS: APPEARANCE,URINE CLOUDY; BILIRUBIN,URINE NEGATIVE (NEGATIVE); COLOR,URINE YELLOW; GLUCOSE, URINE NEGATIVE (NEGATIVE); KETONES,URINE NEGATIVE (NEGATIVE); LEUKOCYTE ESTERASE,URINE LARGE (NEGATIVE); NITRITE,URINE POSITIVE (NEGATIVE); PROTEIN,URINE 30 mg/dL (NEGATIVE); URINE SPECIFIC GRAVITY 1.017; UROBILINOGEN,URINE NEGATIVE mg/dL (<2.0)
[2019-04-11] MEDS ORDERED: CEPHALEXIN 500 MG CAPSULE PO ONE (16:27)
--- NOTE | 2019-04-11 16:27 | ER Document Report ---
ED General - General Chief Complaint: Urinary Problem Stated Complaint: URINARY ISSUES Time Seen by Provider: 04/11/19 13:24 Primary Care Provider: GOOD RICHMOND MD [Primary Care Provider] - Follow up in 3-5 days Mode of Arrival: Wheelchair Notes: Patient is a 78-year-old female who presents the emergency department with a chief complaint of dysuria and a fever. Her son is at bedside to provide additional history. Her son states that the patient had a urinary tract infection back in January, but states that he does not think that the infection completely cleared. Patient also states that she has a rash to her perineum. They are using ointment at home, but cannot recall what kind of ointment. Patient has a past medical history of depression, hypertension, hyperlipidemia, GERD, and urinary tract infections. TRAVEL OUTSIDE OF THE [place] IN LAST 30 DAYS: No - Related Data Allergies/Adverse Reactions: Penicillins Allergy (Severe, Verified 08/20/13 13:45) Sulfa (Sulfonamide Antibiotics) Allergy (Severe, Verified 08/20/13 13:45) Past Medical History - General Information source: Relative - Social History Smoking Status: Never Smoker Chew tobacco use (# tins/day): No Frequency of alcohol use: None Drug Abuse: None Family History: Reviewed & Not Pertinent Patient has suicidal ideation: No Patient has homicidal ideation: No - Past Medical History Cardiac Medical History: Reports: Hx Hypercholesterolemia, Hx Hypertension Denies: Hx Heart Attack Pulmonary Medical History: Reports: Hx Asthma - no problems since age [age] Denies: Hx Tuberculosis Neurological Medical History: Reports: Hx Cerebrovascular Accident - 2008, right toes paresthesia. Denies: Hx Seizures Endocrine Medical History: Reports: Hx Diabetes Mellitus Type 2 - With peripheral neuropathy Renal/ Medical History: Denies: Hx Peritoneal Dialysis Malignancy Medical History: Reports: Hx Skin Cancer - Left face GI Medical History: Reports: Hx Gastroesophageal Reflux Disease. Denies: Hx H epatitis, Hx Hiatal Hernia, Hx Ulcer Psychiatric Medical History: Reports: Hx Dementia Infectious Medical History: Denies: Hx Hepatitis Past Surgical History: Reports: Hx Hysterectomy, Hx Orthopedic Surgery - right hip fracture/ pinning. Denies: Hx Mastectomy, Hx Open Heart Surgery, Hx Pacemaker - Immunizations Hx Diphtheria, Pertussis, Tetanus Vaccination: No Hx Pneumococcal Vaccination: 07/27/09 Review of Systems - Review of Systems Notes: REVIEW OF SYSTEMS: CONSTITUTIONAL : See HPI. EENT: Denies eye, ear, throat, or mouth pain, discharge, or symptoms. Denies nasal or sinus congestion. CARDIOVASCULAR: Denies chest pain. RESPIRATORY: Denies shortness of breath, cough, congestion, difficulty breathing, or wheezing. GASTROINTESTINAL: Denies nausea, vomiting, and diarrhea. Denies abdominal pain. Denies constipation. GENITOURINARY: See HPI. MUSCULOSKELETAL: Denies neck and back pain. Denies joint pain or swelling. SKIN: See HPI. HEMATOLOGIC : Denies easy bruising or bleeding. LYMPHATIC: Denies swollen, painful, enlarged glands. NEUROLOGICAL: Denies no numbness or tingling denies new weakness. Denies headache. Denies altered mental status. Denies alteration in speech. PSYCHIATRIC: Denies stress, anxiety, alteration in sleep patterns, or depression. All other systems reviewed and negative. Physical Exam - Vital signs Vitals: Temp Pulse Resp BP 99.5 F 87 18 136/59 H 04/11/19 13:01 04/11/19 13:01 04/11/19 13:04/11/19 13:01 - Notes Notes: PHYSICAL EXAMINATION: GENERAL: Obese, appears stated age, no acute distress. HEAD: Normocephalic, atraumatic. EYES: PERRL, conjunctiva normal, all extraocular movements intact, sclera nonicteric ENT: Dry mucous membranes. NECK: Supple, no noticeable swelling, redness, rash. Normal range of motion. LUNGS: Equal breath sounds bilaterally and clear to auscultation. No wheezes rales or rhonchi. CARDIOVASCULAR: S1-S2, regular rate, regular rhythm. Radial pulses 2+, normal. ABDOMEN: Normoactive bowel sounds. Soft, nontender, no guarding, no rebound tenderness, and no masses palpated. EXTREMITIES: Normal strength and range of motion, no pitting or edema. No cya nosis. NEUROLOGICAL: Moves all extremities upon command. Strength 4/5 in all extremities, which is her normal. PSYCH: Normal mood, normal affect. SKIN: Warm, dry. Very small erythema noted to bilateral groin. Normal skin turgor. Course - Re-evaluation Re-evalutation: Patient's hematology is unremarkable. Hemoglobin hematocrit are stable. No leukocytosis noted. Vital signs are stable. Her chemistries are unremarkable. Urine shows a large amount of leukocytes and greater than 182 white blood cells and her urine. She also has 3+ bacteria with WBC clumps. Her urine will be sent for culture. She will be started on Keflex. I will also start her on nystatin powder for rash to her groin. She will also follow-up with her primary care provider. Family is at bedside and agrees with this plan. Follow-up precautions were given. Verbal discharge instructions were given to the patient. They verbalized understanding. They are stable for discharge. - Vital Signs Vital signs: Temp Pulse Resp BP Pulse Ox 98.3 F 90 18 152/45 H 97 04/11/19 16:51 04/11/19 16:51 04/11/19 13:01 04/11/19 16:51 04/11/19 16:51 - Laboratory Result Diagrams: 04/11/19 13:57 04/11/19 13:57 Laboratory results interpreted by me: 04/11/19 04/11/19 04/11/19 13:57 13:57 14:45 RBC 3.68 L Hct 35.2 L Sodium 136.9 L Glucose 158 H Urine Protein 30 H Urine Blood SMALL H Urine Nitrite POSITIVE H Ur Leukocyte Esterase LARGE H Discharge - Discharge Clinical Impression: Rash of groin Urinary tract infection Qualifiers: Urinary tract infection type: acute cystitis Hematuria presence: with hematuria Qualified Code(s): N30.01 - Acute cystitis with hematuria Condition: Stable Disposition: HOME, SELF-CARE Instructions: Cephalexin ([facility]), Urinary Tract Infection ([facility]) Additional Instructions: Your urine shows findings consistent with a urinary tract infection. Please take all the antibiotics as directed even if your symptoms have improved. Please follow-up with your primary care physician as needed. Return to emergency room if you develop fever >101F, persistent vomiting, become lethargic, have severe pain in your sides, or any other symptoms that are concerning to you. Prescriptions: Cephalexin [Keflex] 500 mg PO BID #14 capsule Nystatin 1 each MC ASDIR PRN #7 powder.ea. PRN Reason: Referrals: GOOD RICHMOND MD [Primary Care Provider] - Follow up in 3-5 days
[2019-04-11 16:53] VITALS: BP 152/45
== END 2019-04-11 16:54 | disposition home or self-care (01) ==
LOC: ER 12:54
DX: N30.01 Acute cystitis with hematuria (principal); R21 Rash and other nonspecific skin eruption; R30.0 Dysuria; R50.9 Fever, unspecified; E78.00 Pure hypercholesterolemia, unspecified; I10 Essential (primary) hypertension; E11.9 Type 2 diabetes mellitus without complications; Z88.0 Allergy status to penicillin; Z88.2 Allergy status to sulfonamides; Z90.710 Acquired absence of both cervix and uterus
CPT/HCPCS: 36415; 87086; 85025; 87088; 80053; 81001; A9270; 51701; 87186; 99283

== ENCOUNTER 2020-01-15 09:33 | Emergency (ER) | payer MEDICARE, OTHER ==
[2020-01-15 09:59] LABS: INTERNATIONAL RATION (INR) 1.05; PROTHROMBIN TIME 13.7 SEC (11.4-15.4)
[2020-01-15 10:00] LABS: ABSOLUTE EOSINOPHILS # (AUTO) 0.2 10^3/uL (0.0-0.6); ABSOLUTE LYMPHOCYTES (AUTO) 2.7 10^3/uL (0.5-4.7); ABSOLUTE MONOCYTES (AUTO) 0.9 10^3/uL (0.1-1.4); ABSOLUTE NEUT (AUTO) 5.3 10^3/uL (1.7-8.2); BASOPHILS % (AUTO) 0.4 % (0-2); EOSINOPHILS % (AUTO) 2.1 % (0-6); HEMATOCRIT 38.4 % (36.0-47.0); HEMOGLOBIN 12.9 g/dL (12.0-15.5); LYMPHOCYTES % (AUTO) 29.7 % (13-45); MEAN CORPUSCULAR HEMOGLOBIN 33.6 pg (27.0-33.4); MEAN CORPUSCULAR HGB CONC 33.5 g/dL (32.0-36.0); MEAN CORPUSCULAR VOLUME 100 fl (80-97); MONOCYTES % (AUTO) 9.9 % (3-13); PARTIAL THROMBOPLASTIN TIME 31.7 SEC (23.5-35.8); PLATELET COUNT 137 10^3/uL (150-450); RED BLOOD COUNT 3.83 10^6/uL (3.72-5.28); RED CELL DISTRIBUTION WIDTH 14.1 % (11.5-14.0); SEGMENTED NEUTROPHILS % (AUTO) 57.9 % (42-78); TOTAL CELLS COUNTED % (AUTO) 100 %; WHITE BLOOD COUNT 9.1 10^3/uL (4.0-10.5)
[2020-01-15] MEDS ORDERED: NORMAL SALINE 1000 ML 1,000 ML IV ONE (10:00)
--- NOTE | 2020-01-15 10:01 | EKG REPORT ---
SEVERITY:- ABNORMAL ECG - SINUS RHYTHM RBBB AND LAFB PROBABLE LEFT VENTRICULAR HYPERTROPHY : Confirmed by: Musa De Souza MD 15-Jan-2020 10:00:32
[2020-01-15 10:13] LABS: ALBUMIN 3.9 g/dL (3.5-5.0); ALKALINE PHOSPHATASE 101 U/L (38-126); ANION GAP 9 (5-19); ASPARTATE AMINO TRANSFERASE 25 U/L (14-36); BILIRUBIN,TOTAL 0.6 mg/dL (0.2-1.3); BLOOD UREA NITROGEN 13 mg/dL (7-20); CALCIUM 9.3 mg/dL (8.4-10.2); CARBON DIOXIDE 24 mmol/L (22-30); CHLORIDE 107 mmol/L (98-107); CREATINE KINASE 23 U/L (30-135); GLUCOSE 151 mg/dL (75-110); POTASSIUM 4.4 mmol/L (3.6-5.0)
[2020-01-15 10:24] LABS: CREATINE KINASE MB 0.35 ng/mL (<4.55)
[2020-01-15 10:25] LABS: TROPONIN I < 0.012 ng/mL
--- NOTE | 2020-01-15 10:32 | RADIOLOGY REPORT (SQ) ---
EXAM DESCRIPTION: CHEST SINGLE VIEW IMAGES COMPLETED DATE/TIME: 01/15/2020 10:16 am REASON FOR STUDY: stroke-like symptoms COMPARISON: 2010 EXAM PARAMETERS: NUMBER OF VIEWS: One view. TECHNIQUE: Single frontal radiographic view of the chest acquired. RADIATION DOSE: NA LIMITATIONS: None. FINDINGS: LUNGS AND PLEURA: No opacities, masses or pneumothorax. No pleural effusion. MEDIASTINUM AND HILAR STRUCTURES: No masses. Contour normal. HEART AND VASCULAR STRUCTURES: Heart normal in size. Normal vasculature. BONES: No acute findings. HARDWARE: None in the chest. OTHER: No other significant finding. IMPRESSION: NO ACUTE RADIOGRAPHIC FINDING IN THE CHEST. TECHNICAL DOCUMENTATION: JOB ID: [id number] 2010 [employer]- All Rights Reserved Reading location - IP/workstation name: [email or web address]
--- NOTE | 2020-01-15 10:35 | RADIOLOGY REPORT (SQ) ---
EXAM DESCRIPTION: CT HEAD WITHOUT IMAGES COMPLETED DATE/TIME: 01/15/2020 10:15 am REASON FOR STUDY: stroke-like symptoms COMPARISON: None. TECHNIQUE: Axial images acquired through the brain without intravenous contrast. Images reviewed wi th bone, brain and subdural windows. Additional sagittal and coronal reconstructions were generated. Images stored on PACS. All CT scanners at this facility use dose modulation, iterative reconstruction, and/or weight based d osing when appropriate to reduce radiation dose to as low as reasonably achievable (ALARA). [facility]: Dose Right [facility]: CareDose [facility]: Dose Right [facility]: Teradose 4D [facility]: Smart SocialDefender RADIATION DOSE: CT Rad equipment meets quality standard of care and radiation dose reduction techniq ues were employed. CTDIvol: 53.2 mGy. DLP: 937 mGy-cm. mGy. LIMITATIONS: None. FINDINGS: VENTRICLES: Normal size and contour. CEREBRUM: No masses. No hemorrhage. No midline shift. No evidence for acute infarction. Normal gra y/white matter differentiation. No areas of low density in the white matter. CEREBELLUM: No masses. No hemorrhage. No alteration of density. No evidence for acute infarction. EXTRAAXIAL SPACES: No fluid collections. No masses. ORBITS AND GLOBE: No intra- or extraconal masses. Normal contour of globe without masses. CALVARIUM: No fracture. PARANASAL SINUSES: No fluid or mucosal thickening. SOFT TISSUES: No mass or hematoma. OTHER: No other significant finding. IMPRESSION: NORMAL BRAIN CT WITHOUT CONTRAST. EVIDENCE OF ACUTE STROKE: NO. COMMENT: Quality ID # [id number]: Final reports with documentation of one or more dose reduction techniques (e.g., Automated exposure control, adjustment of the mA and/or kV according to patient size, use of iterative reconstruction technique) TECHNICAL DOCUMENTATION: JOB ID: [id number] 2010 [employer]- All Rights Reserved Reading location - IP/workstation name: [email or web address]
[2020-01-15 10:42] LABS: APPEARANCE,URINE CLOUDY; BILIRUBIN,URINE SMALL (NEGATIVE); COLOR,URINE YELLOW; GLUCOSE, URINE NEGATIVE (NEGATIVE); KETONES,URINE NEGATIVE (NEGATIVE); LEUKOCYTE ESTERASE,URINE LARGE (NEGATIVE); NITRITE,URINE POSITIVE (NEGATIVE); PROTEIN,URINE NEGATIVE (NEGATIVE); URINE SPECIFIC GRAVITY 1.015; UROBILINOGEN,URINE NEGATIVE mg/dL (<2.0)
[2020-01-15 10:54] LABS: URINE AMPHETAMINES SCREEN NEGATIVE; URINE BARBITURATES SCREEN NEGATIVE; URINE BENZODIAZEPINES SCREEN NEGATIVE; URINE COCAINE SCREEN NEGATIVE; URINE MARIJUANA (THC) SCREEN NEGATIVE; URINE METHADONE SCREEN NEGATIVE; URINE PHENCYCLIDINE SCREEN NEGATIVE
[2020-01-15] MEDS ORDERED: CIPROFLOXACIN 400 MG/D5W RTU 400 MG/200 ML RTUPB IV ONE (11:08)
--- NOTE | 2020-01-15 12:45 | ER Document Report ---
Entered by SOFIA EDMONDSON SCRIBE 01/15/20 1025 Acting as scribe for:ADRIENNE SANTACRUZ MD ED General - General Chief Complaint: Weakness Stated Complaint: GAIT ISSUE/WEAKNESS Time Seen by Provider: 01/15/20 09:53 Primary Care Provider: LULÚ MUNOZ PA-C [Primary Care Provider] - Follow up as needed Mode of Arrival: Ambulatory Information source: Patient Notes: This 79 year old female that presents to the emergency department today with co mplaints of "acting delirious" for the last few days per son at bedside. Son states that the patient is just getting over a UTI, stating she finished up her antibiotics a few days ago. Son states the urine still has an odor to it. Son states the patient has been generally weak for the last few days as well. TRAVEL OUTSIDE OF THE [place] IN LAST 30 DAYS: No - Related Data Allergies/Adverse Reactions: Penicillins Allergy (Severe, Verified 01/15/20 10:30) Sulfa (Sulfonamide Antibiotics) Allergy (Severe, Verified 01/15/20 10:30) Past Medical History - General Information source: Patient - Social History Smoking Status: Never Smoker Cigarette use (# per day): No Frequency of alcohol use: None Drug Abuse: None Lives with: Family Family History: Reviewed & Not Pertinent Patient has homicidal ideation: No - Past Medical History Cardiac Medical History: Reports: Hx Hypercholesterolemia, Hx Hypertension Pulmonary Medical History: Reports: Hx Asthma - no problems since age [age] Neurological Medical History: Reports: Hx Cerebrovascular Accident - 2008, right toes paresthesia Endocrine Medical History: Reports: 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 Malignancy Medical History: Reports: Hx Skin Cancer - Left face GI Medical History: Reports: Hx Gastroesophageal Reflux Disease Psychiatric Medical History: Reports: Hx Dementia Past Surgical History: Reports: Hx Hysterectomy, Hx Orthopedic Surgery - right hip fracture/ pinning - Immunizations Hx Diphtheria, Pertussis, Tetanus Vaccination: No Hx Pneumococcal Vaccination: 07/27/09 Review of Systems - Review of Systems -: Yes ROS unobtainable due to patient's medical condition - demented Physical Exam - Vital signs Vitals: Temp 99.5 F 01/15/20 09:34 - Notes Notes: Physical Exam: General: Alert, moderate distress. HEENT: Normocephalic. Atraumatic. PERRL. Extraocular movements intact. Oropharynx clear. Neck: Supple. Respiratory: No respiratory distress. Clear and equal breath sounds bilaterally. Cardiovascular: Regular rate and rhythm. Abdominal: Normal Inspection. Non-tender. No distension. Normal Bowel Sounds. Back: No gross abnormalities. Extremities: Moves all four extremities. Upper extremities: Normal inspection. Normal ROM. Lower extremities: Non pitting lower extremity edema. Normal ROM. Neurological: Confused at baseline. No extremity weakness. Unable to follow most commands. Psychological: Agitated Skin: Warm. Dry. Normal color. Course - Re-evaluation Re-evalutation: 01/15/20 12:38 Patient resting in bed comfortably not showing signs of distress. - Vital Signs Vital signs: Temp Pulse Resp BP Pulse Ox 99.5 F 98 22 H 143/69 H 98 01/15/20 09:37 01/15/20 10:00 01/15/20 10:00 01/15/20 10:00 01/15/20 10:00 01/15/20 12:38 Vital signs stable - Laboratory Result Diagrams: 01/15/20 09:44 01/15/20 09:44 Laboratory results interpreted by me: 01/15/20 01/15/20 01/15/20 09:44 09:44 09:44 MCV 100 H MCH 33.6 H RDW 14.1 H Plt Count 137 L Glucose 151 H POC Glucose 138 H Creatine Kinase 23 L Urine Blood Urine Nitrite Urine Bilirubin Ur Leukocyte Esterase 01/15/20 09:55 MCV MCH RDW Plt Count Glucose POC Glucose Creatine Kinase Urine Blood SMALL H Urine Nitrite POSITIVE H Urine Bilirubin SMALL H Ur Leukocyte Esterase LARGE H - Diagnostic Test Radiology reviewed: Image reviewed, Reports reviewed Radiology results interpreted by me: 01/15/20 12:39 CT scan of head shows no acute process no stroke. Chest x-ray shows no infiltrate no acute process. - EKG Interpretation by Me Additional EKG results interpreted by me: 01/15/20 12:39 Twelve-lead EKG shows sinus normal sinus rhythm right bundle branch block and left anterior fascicular block and left ventricular hypertrophy. Discharge - Discharge Clinical Impression: Altered mental status, Urinary tract infection Condition: Stable Disposition: HOME, SELF-CARE Instructions: Urinary Tract Infection ([facility]) Additional Instructions: Urinary Tract Infection Your evaluation indicates that you have a urinary tract infection. This is due to germs growing in the bladder. This is a common problem. This infection usually responds quickly to antibiotics. Your antibiotic should be taken exactly as prescribed. Drink plenty of fluids -- three to four quarts a day. Occasionally, a bladder anesthetic will be prescribed to help stop the feeling of urgency until the antibiotic has a chance to clear the infection. This may cause your urine to be dark orange. Certain urine infections require a culture. If the doctor obtained a culture, the results will be back in two days. You should call to see if a change in treatment is needed. A repeat urinalysis after you finish treatment is often recommended. The physician will let you know if further testing is required. Call the doctor if you develop fever, chills, flank pain, inability to urinate, or blood in the urine. Prescriptions: Ciprofloxacin HCl [Cipro] 500 mg PO BID 10 Days #20 tablet Referrals: LULÚ MUNOZ PA-C [Primary Care Provider] - Follow up as needed I personally performed the services described in the documentation, reviewed and edited the documentation which was dictated to the scribe in my presence, and it accurately records my words and actions.
[2020-01-15 13:25] VITALS: BP 125/81
== END 2020-01-15 13:25 | disposition home or self-care (01) ==
LOC: ER 09:33
DX: N39.0 Urinary tract infection, site not specified (principal); R41.82 Altered mental status, unspecified; R53.1 Weakness; Z88.0 Allergy status to penicillin; Z88.2 Allergy status to sulfonamides; E11.42 Type 2 diabetes mellitus with diabetic polyneuropathy; I10 Essential (primary) hypertension; J45.909 Unspecified asthma, uncomplicated
CPT/HCPCS: 93005; 99285; 96361; 96365; 36415; 87040; 87086; 82553; 82962; 82550; 83605; 85025; 85610; 85730; 87088; 80053; 81001; 84484; 80307; 87150 ×26; 71045; 70450; 93010; J7030; J0744; 87077; 87186

== ENCOUNTER → 2020-08-24 | Outpatient (CLI) | payer MEDICARE ==
[2020-08-24 16:26] LABS: ALBUMIN 3.9 g/dL (3.5-5.0); ALKALINE PHOSPHATASE 101 U/L (38-126); ANION GAP 11 (5-19); ASPARTATE AMINO TRANSFERASE 34 U/L (14-36); BILIRUBIN,DIRECT 0.3 mg/dL (0.0-0.4); BILIRUBIN,TOTAL 0.7 mg/dL (0.2-1.3); BLOOD UREA NITROGEN 24 mg/dL (7-20); CALCIUM 9.3 mg/dL (8.4-10.2); CARBON DIOXIDE 22 mmol/L (22-30); CHLORIDE 110 mmol/L (98-107); GLUCOSE 122 mg/dL (75-110); POTASSIUM 4.3 mmol/L (3.6-5.0); TOTAL PROTEIN 7.2 g/dL (6.3-8.2)
[2020-08-24 17:00] LABS: ABSOLUTE EOSINOPHILS # (AUTO) 0.2 10^3/uL (0.0-0.6); ABSOLUTE LYMPHOCYTES (AUTO) 2.3 10^3/uL (0.5-4.7); ABSOLUTE MONOCYTES (AUTO) 0.5 10^3/uL (0.1-1.4); ABSOLUTE NEUT (AUTO) 5.3 10^3/uL (1.7-8.2); BASOPHILS % (AUTO) 0.6 % (0-2); HEMATOCRIT 37.4 % (36.0-47.0); HEMOGLOBIN 12.3 g/dL (12.0-15.5); LYMPHOCYTES % (AUTO) 27.4 % (13-45); MEAN CORPUSCULAR VOLUME 100 fl (80-97); MONOCYTES % (AUTO) 6.1 % (3-13); PLATELET COUNT 148 10^3/uL (150-450); RED BLOOD COUNT 3.73 10^6/uL (3.72-5.28); RED CELL DISTRIBUTION WIDTH 15.3 % (11.5-14.0); SEGMENTED NEUTROPHILS % (AUTO) 63.9 % (42-78); TOTAL CELLS COUNTED % (AUTO) 100 %; WHITE BLOOD COUNT 8.3 10^3/uL (4.0-10.5)
== END ==
LOC: OD 15:24
PROVIDERS: ATTEND Physician Assistant
DX: E11.40 Type 2 diabetes mellitus with diabetic neuropathy, unspecified (principal); I10 Essential (primary) hypertension; E78.5 Hyperlipidemia, unspecified
CPT/HCPCS: 36415; 80053; 83036; 83690; 85025